=== PATIENT | male | born 1960 | race Caucasian/White ===

== ENCOUNTER 2022-06-29 06:03 | Outpatient (CLI) | payer BC, SELFPAY ==
--- NOTE | 2022-06-29 06:10 | USCV_ITS ---
Bautista Gonzalez Age: 62 Gender: M : 1960 Exam Date: 06/29/2022 06:15 Ordering Phys: Treva Hurst [employer] Technologist: Latrell Stovall Exam Location: [facility] [place] Indication: syncope BP: 135 / 82 HR: 87 Rhythm: Sinus Technical Quality: Adequate MEASUREMENTS (Male / Female) Normal Values 2D ECHO LV Diastolic Diameter PLAX 3.6 cm 4.2 - 5.9 / 3.9 - 5.3 cm LV Systolic Diameter PLAX 3.0 cm IVS Diastolic Thickness 1.2 cm 0.6 - 1.0 / 0.6 - 0.9 cm IVS Systolic Thickness 1.3 cm LVPW Diastolic Thickness 1.0 cm 0.6 - 1.0 / 0.6 - 0.9 cm LVPW Systolic Thickness 1.6 cm LVOT Diameter 2.1 cm LV Ejection Fraction 2D Teich 33.3 % LA Diameter 3.8 cm Aorta at Sinotubular Diameter 2.4 cm IVC Diameter 1.8 cm M-MODE Aortic Annulus Diameter 3.8 cm LA Ao Ratio MM 1.2 MV E Point Septal Separation 1.2 cm DOPPLER AV Peak Velocity 153.0 cm/s LVOT Peak Velocity 96.0 cm/s AV Area Cont Eq vti 2.1 cm squared AV Area Cont Eq pk 2.1 cm squared MV Area PHT 5.0 cm squared Mitral E to A Ratio 1.1 MV E' Velocity 61.5 cm/s Mitral E to MV E' Ratio 9.9 Mitral E to LV E' Lateral Ratio 9.1 Mitral E to LV E' Septal Ratio 10.9 TR Peak Velocity 97.0 cm/s TR Peak Gradient 3.8 mmHg RV Acceleration Time 0.1 s FINDINGS Left Ventricle Normal left ventricular size, systolic function and wall thickness, with no regional wall motion abnormalities. Normal left ventricular wall thickness. Normal diastolic filling pattern. Right Ventricle The right ventricle is normal in size and function. Right Atrium The right atrium is normal in size. Left Atrium The left atrium is normal in size. Mitral Valve Structurally normal mitral valve without significant stenosis or prolapse. There is no mitral regurgitation. Aortic Valve Structurally normal aortic valve without significant sclerosis or stenosis. There is no aortic regurgitation. Tricuspid Valve Structurally normal tricuspid valve without significant stenosis or regurgitation. Pulmonary artery systolic pressure is normal. Pulmonic Valve Structurally normal pulmonic valve without significant stenosis. There is no pulmonic regurgitation. Pericardium Normal pericardium without effusion. Aorta Normal ascending aorta dimension. IVC The inferior vena cava appears normal. CONCLUSIONS Normal transthoracic echocardiogram. Normal left ventricular size, systolic function and wall thickness, with no regional wall motion abnormalities. Normal left ventricular wall thickness. Normal diastolic filling pattern. Hernando Lara MD (Electronically Signed) Final Date: 29 June 2022 08:59 S
== END 2022-06-29 06:04 | disposition home or self-care (01) ==
LOC: RAD 06:04
PROVIDERS: PCP Registered Nurse; Visit Provider Registered Nurse
DX: R53.83 Other fatigue (principal); R55 Syncope and collapse; R06.02 Shortness of breath
CPT/HCPCS: 93306